=== PATIENT | female | born 1950 | race Two or more races ===

== ENCOUNTER 2017-08-26 12:24 | Outpatient (CLI) | payer OTHER | END 2017-08-26 12:32 | disposition home or self-care (01) | LOC: RAD 12:24 | DX: Z12.31 Encounter for screening mammogram for malignant neoplasm of breast (principal); N64.89 Other specified disorders of breast; M54.14 Radiculopathy, thoracic region; R92.2 Inconclusive mammogram; E04.8 Other specified nontoxic goiter; M54.5 Low back pain; M54.17 Radiculopathy, lumbosacral region; M60.89 Other myositis, multiple sites ==

== ENCOUNTER 2017-11-23 10:16 | Outpatient (CLI) | payer OTHER | END 2017-11-23 16:51 | disposition home or self-care (01) | LOC: TOM 10:16 | DX: R10.13 Epigastric pain (principal); R14.0 Abdominal distension (gaseous) ==

== ENCOUNTER 2018-01-26 11:04 | Outpatient (CLI) | payer OTHER | END 2018-01-26 11:26 | disposition home or self-care (01) | LOC: MRI 11:04 | DX: R93.5 Abnormal findings on diagnostic imaging of other abdominal regions, including retroperitoneum (principal) | CPT/HCPCS: 74182 ==

== ENCOUNTER 2018-10-12 10:49 | Emergency (ER) | payer OTHER ==
[~2018-10-12] VITALS: Ht 160 cm; Wt 77.1 kg
== END 2018-10-12 13:48 | disposition home or self-care (01) ==
LOC: ER 10:49
DX: S80.02XA Contusion of left knee, initial encounter (principal); W13.1XXA Fall from, out of or through bridge, initial encounter; Y93.01 Activity, walking, marching and hiking; Y92.89 Other specified places as the place of occurrence of the external cause; Y99.8 Other external cause status

== ENCOUNTER 2019-03-08 11:54 | Emergency (ER) | payer OTHER ==
[~2019-03-08] VITALS: Ht 160 cm; Wt 74.4 kg
[2019-03-08] MEDS ORDERED: TENORMIN50 M1 PO (12:48)
[2019-03-08] MEDS ORDERED: NORVASC2.5 M1 PO (12:49)
[2019-03-08] MEDS ORDERED: METFORMIN HCL500 MG PO (12:51)
== END 2019-03-08 13:56 | disposition home or self-care (01) ==
LOC: ER 11:54
DX: M54.5 Low back pain (principal)

== ENCOUNTER 2019-04-11 13:35 | Outpatient (CLI) | payer OTHER ==
[~2019-04-11 13:35] MED LIST: METFORMIN HCL500 MG PO; NORVASC2.5 M1 PO; TENORMIN50 M1 PO
== END 2019-04-11 13:40 | disposition home or self-care (01) ==
LOC: RAD 13:35
DX: R05 Cough (principal)

== ENCOUNTER → 2019-08-21 | Emergency (ER) | payer OTHER ==
[~2019-08-21] VITALS: Ht 160 cm; Wt 76.7 kg
[~2019-08-21] MED LIST changes: +AVAPRO300 MG; +HYDROCHLOROTHIA25 MG; +SYNTHROID100 MCG
== END | disposition left against medical advice (07) ==
LOC: ER 10:13
DX: E87.1 Hypo-osmolality and hyponatremia (principal); R55 Syncope and collapse; R42 Dizziness and giddiness; E87.6 Hypokalemia; E86.0 Dehydration; I10 Essential (primary) hypertension; Z03.818 Encounter for observation for suspected exposure to other biological agents ruled out

== ENCOUNTER → 2020-01-29 | Emergency (ER) | payer OTHER ==
[~2020-01-29] VITALS: Ht 160 cm; Wt 63.5 kg
== END | disposition left against medical advice (07) ==
LOC: ER 13:33
DX: S30.0XXA Contusion of lower back and pelvis, initial encounter (principal); W18.09XA Striking against other object with subsequent fall, initial encounter; Y93.89 Activity, other specified; Y92.89 Other specified places as the place of occurrence of the external cause; Y99.8 Other external cause status

== ENCOUNTER 2020-10-27 13:39 | Emergency (ER) | payer OTHER ==
[~2020-10-27] VITALS: Ht 160 cm; Wt 72.6 kg
== END 2020-10-27 17:22 | disposition home or self-care (01) ==
LOC: ER 13:39
DX: R53.81 Other malaise (principal)

== ENCOUNTER 2021-01-07 15:36 | Outpatient (CLI) | payer OTHER | END 2021-01-07 15:44 | disposition home or self-care (01) | LOC: RAD 15:36 | PROVIDERS: ATTEND Family Medicine | DX: R05.8 Other specified cough (principal) ==

== ENCOUNTER 2021-04-28 14:01 | Outpatient (CLI) | payer OTHER | END 2021-04-28 14:05 | disposition home or self-care (01) | LOC: RAD 14:01 | PROVIDERS: ATTEND Family Medicine | DX: J30.9 Allergic rhinitis, unspecified (principal); J01.11 Acute recurrent frontal sinusitis ==

== ENCOUNTER 2021-08-13 08:53 | Emergency (ER) | payer OTHER ==
[~2021-08-13] VITALS: Ht 160 cm; Wt 73.5 kg
[2021-08-13] MEDS ORDERED: NORVASC10 MG PO (09:19)
[2021-08-13] MEDS ORDERED: DIPHENHYDRAMINE25 M1 PO (10:27)
[2021-08-13] MEDS ORDERED: MEDROLPACK PO (10:27)
[2021-08-13] MEDS ORDERED: CETIRIZINE HCL10 MG PO (10:27)
== END 2021-08-13 11:58 ==
LOC: ER 08:53
DX: T78.1XXA Other adverse food reactions, not elsewhere classified, initial encounter (principal); L27.2 Dermatitis due to ingested food; L50.0 Allergic urticaria; I10 Essential (primary) hypertension; E03.9 Hypothyroidism, unspecified; Z88.5 Allergy status to narcotic agent; Z88.9 Allergy status to unspecified drugs, medicaments and biological substances

== ENCOUNTER 2023-05-25 12:58 | Emergency (ER) | payer OTHER ==
[~2023-05-25] VITALS: Ht 160 cm; Wt 63.5 kg
[~2023-05-25 12:58] MED LIST changes: +CETIRIZINE HCL10 MG PO; +DIPHENHYDRAMINE25 M1 PO; +MEDROLPACK PO; +NORVASC10 MG PO
[2023-05-25] MEDS ORDERED: TENORMIN100 M1 (13:24)
[2023-05-25] MEDS ORDERED: TIROSINT75 MCG PO (13:25)
[2023-05-25] MEDS ORDERED: ENALAPRILAT DIHYDRATE 1.25 MG/ML VIAL IV STA (14:02)
[2023-05-25] MEDS ORDERED: hydrOXYzine PAMOATE 25 MG CAPSULE PO STA (14:02)
[2023-05-25 14:22] LABS: HEMATOCRIT 39.4 % (36.0-45.00); HEMOGLOBIN 13.5 g/dL (12.0-15.00); MEAN CELL VOLUME 83.4 fL (80.00-100.00); MEAN CORPUSCULAR HEMOGLOBIN 28.5 pg (27.00-32.0); MEAN CORPUSCULAR HGB CONC 34.2 g/dl (32.0-36.0); PLATELET COUNT 297 K/uL (150-450); RED BLOOD COUNT 4.72 M/uL (4.00-6.00); RED CELL DISTRIBUTION WIDTH 14.3 % (11.5-14.5)
[2023-05-25 14:39] LABS: CALCIUM 9.7 mg/dL (8.5-10.1); CREATININE SERUM 0.84 mg/dL (0.55-1.02); GFR 66.65; POTASSIUM 3.58 mEq/L (3.5-5.1)
[2023-05-25 15:30] LABS: URINE APPEARANCE Cloudy; URINE BILIRRUBIN Negative (NEGATIVE); URINE BLOOD Negative; URINE COLOR Yellow; URINE GLUCOSE Negative (NEGATIVE); URINE LEUKOCYTE Small; URINE NITRATE Negative; URINE PROTEIN Trace (NEGATIVE); URINE UROBILINOGEN 0.2 E.U./dl
[2023-05-25 15:34] LABS: URINE BACTERIA 1514.3 uL (0.0-1933); URINE EPITHELIAL CELLS 68.9 uL (0.0-38.8); URINE RBC 88.8 uL (0.0-20.8); URINE WBC 43.1 uL (0.0-23.2)
[2023-05-25 16:30] LABS: URINE CRYSTALS FEW /HPF
[2023-05-25 16:31] LABS: URINE YEAST FEW /hpf
== END 2023-05-25 17:50 | disposition home or self-care (01) ==
LOC: ER 12:58
PROVIDERS: Emergency Medicine
DX: I10 Essential (primary) hypertension (principal); N39.0 Urinary tract infection, site not specified; Z88.2 Allergy status to sulfonamides; Z88.5 Allergy status to narcotic agent
CPT/HCPCS: 36415; 96365; 99282; J3490